=== PATIENT | male | born 1980 ===

== ENCOUNTER 2018-02-07 12:34 | Emergency (ER) | payer SELFPAY ==
[2018-02-07 13:01] VITALS: BP 146/70; PULSE 63; RESP 18; TEMP 98.3; O2SAT 100
[2018-02-07 16:10] LABS: BILIRUBIN, URINE NEG (NEG); BLOOD, URINE NEG (NEG); GLUCOSE,URINE NEG (NEG); KETONE, URINE NEG (NEG); MUCUS URINE FEW /lpf (OCC); NITRITE,URINE NEG (NEG); URINE COLOR YELLOW (YELLW/STRAW); URINE LEUKOCYTE ESTERASE NEG (NEG)
[2018-02-07] MEDS ORDERED: DEXAMETHASONE SOD PHOS 4 MG/ML VIAL IM ONE (18:00)
[2018-02-07] MEDS ORDERED: CLINDAMYCIN PHOS 600 MG/4 ML VIAL IM ONE (18:00)
[2018-02-07] MEDS ORDERED: BACT800T5 PO (18:16)
[2018-02-07] MEDS ORDERED: CLIN150C14 PO (18:16)
--- NOTE | 2018-02-07 18:17 | PD ---
HPI Chief Complaint: Skin Problem Time Seen by Provider: 17:45 Travel History International Travel<30 days: No Contact w/Intl Traveler<30days: No Traveled to known affect area: No History of Present Illness HPI 37-year-old male complains of pain and swelling of the scrotum. Patient states that he shaved his groin about a month ago. Patient states that he started having itching rash of the groin area intermittent since then. Patient states that itching is worse for the past week. Patient has been using over-the- counter cream for that with some relief. Patient states that he sprayed some type of insect spray to the scrotum last night. Patient states that he has increasing pain and swelling of the scrotum since then. Patient states the pain is burning pain localized to scrotum area. Patient denies any pain radiation. Patient denies any fever chills. Patient denies any dysuria or frequency. Patient denies any trouble urinating. On a scale of 1-10 the pain is an 8. PFSH Social History Alcohol Use: Yes Tobacco Use: No Substance Use: No Allergies-Medications (Allergen,Severity, Reaction): Coded Allergies: No Known Allergies (Unverified , 08/06/16) Reported Meds & Prescriptions Reported Meds & Active Scripts Active Bactrim DS (Sulfamethoxazole-Trimethoprim) 800-160 Mg Tab 1 Tab PO BID Clindamycin (Clindamycin HCl) 150 Mg Cap 300 Mg PO QID Review of Systems General / Constitutional: No: Fever Eyes: No: Visual changes HENT: No: Headaches Cardiovascular: No: Chest Pain or Discomfort Respiratory: No: Shortness of Breath Gastrointestinal: No: Abdominal Pain Genitourinary: No: Dysuria Musculoskeletal: No: Pain Skin: No Rash Neurologic: No: Weakness Psychiatric: No: Depression Endocrine: No: Polydipsia Hematologic/Lymphatic: No: Easy Bruising Physical Exam Narrative GENERAL: Well-nourished, well-developed patient. SKIN: Focused skin assessment warm/dry. HEAD: Normocephalic. EYES: No scleral icterus. No injection or drainage. NECK: Supple, trachea midline. No JVD or lymphadenopathy. CARDIOVASCULAR: Regular rate and rhythm without murmurs, gallops, or rubs. RESPIRATORY: Breath sounds equal bilaterally. No accessory muscle use. GASTROINTESTINAL: Abdomen soft, non-tender, nondistended. MUSCULOSKELETAL: No cyanosis, or edema. BACK: Nontender without obvious deformity. No CVA tenderness. exam: Patient has tenderness swelling edema of scrotum. No induration noted. No penile discharge noted. Data Data Last Documented VS Vital Signs Date Time Temp Pulse Resp B/P (MAP) Pulse Ox O2 Delivery O2 Flow Rate FiO2 02/07/18 13:01 98.3 63 18 146/70 (95) 100 Orders Orders Ua Includes Microscopic (02/07/18 13:03) Gc And Chlamydia Pcr (02/07/18 13:03) Dexamethasone Inj (Decadron Inj) (02/07/18 18:00) Clindamycin Inj (Cleocin Inj) (02/07/18 18:00) Labs Laboratory Tests Test 02/07/18 15:30 Urine Color YELLOW Urine Turbidity CLEAR Urine pH 6.0 Urine Specific [place] 1.027 Urine Protein NEG mg/dL Urine Glucose (UA) NEG mg/dL Urine Ketones NEG mg/dL Urine Occult Blood NEG Urine Nitrite NEG Urine Bilirubin NEG Urine Urobilinogen LESS THAN 2.0 MG/DL Urine Leukocyte Esterase NEG Urine Mucus FEW /lpf Microscopic Urinalysis Comment CULT NOT INDICATED MDM Medical Decision Making Medical Screen Exam Complete: Yes Emergency Medical Condition: Yes Differential Diagnosis Differential diagnosis including cellulitis, abscess, Cathy's gangrene. Narrative Course 37-year-old male with increasing pain swelling scrotum. Patient states that he has itching rash to the groin and over the past month. Patient states that he sprayed scrotum with some insect spray yesterday. Decadron 8 mg IM. Clindamycin 600 mg IM. Diagnosis Primary Impression: Cellulitis, scrotum Patient Instructions: General Instructions Additional Instructions: Take medications as directed. Benadryl for itching. Follow-up with personal physician. Return if persistent problem or worse or not improvement within 2 days. Med/Other Pt SpecificInfo: Prescription(s) given Scripts Prednisone (Prednisone) 20 Mg Tab 20 MG PO BID, #6 TAB 0 Refills Prov: Kian Vela MD 02/07/18 Sulfamethoxazole-Trimethoprim (Bactrim DS) 800-160 Mg Tab 1 TAB PO BID for Infection, #20 TAB 0 Refills Prov: Kina Vela MD 02/07/18 Clindamycin (Clindamycin) 150 Mg Cap 300 MG PO QID for Infection, #80 CAP 0 Refills Prov: Kian Vela MD 02/07/18 Disposition: 01 DISCHARGE HOME Condition: Stable Kian Vela MD Feb 07, 2018 18:17
[2018-02-07] MEDS ORDERED: PRED20 PO (18:21)
[2018-02-07 18:40] VITALS: BP 130/77; TEMP 97.8
== END 2018-02-07 18:40 | disposition home or self-care (01) ==
LOC: NETRI 12:34 → NEPD 18:40
DX: N49.2 Inflammatory disorders of scrotum (principal)
CPT/HCPCS: 81001; 87491; 87591; 96372; 99283; J1100

== ENCOUNTER 2018-02-14 09:25 | Emergency (ER) | payer SELFPAY ==
[~2018-02-14 09:25] MED LIST: BACT800T5 PO; CLIN150C14 PO; PRED20 PO
[2018-02-14 09:33] VITALS: BP 112/68; PULSE 61; RESP 16; TEMP 98.6; O2SAT 99
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
[2018-02-14] MEDS ORDERED: HYDR-3516 PO (11:10)
[2018-02-14] MEDS ORDERED: ACETAMINOPHEN/HYDROcodone 325 MG/5 MG TAB PO ONE (11:15)
== END 2018-02-14 12:03 | disposition home or self-care (01) ==
LOC: NEPK 09:25
DX: S52.134A Nondisplaced fracture of neck of right radius, initial encounter for closed fracture (principal); Y04.0XXA Assault by unarmed brawl or fight, initial encounter
CPT/HCPCS: 29105; 73070

== ENCOUNTER 2018-03-15 12:26 | Emergency (ER) | payer SELFPAY ==
[~2018-03-15 12:26] MED LIST changes: +HYDR-3516 PO; -PRED20 PO
[2018-03-15 12:52] VITALS: BP 104/79; PULSE 55; RESP 20; TEMP 98.3; O2SAT 99
[2018-03-15] MEDS ORDERED: IBUPROFEN 800 MG TAB PO ONE (14:30)
--- NOTE | 2018-03-15 14:40 | PD ---
HPI Chief Complaint: Injury Time Seen by Provider: 14:09 Travel History International Travel<30 days: No Contact w/Intl Traveler<30days: No Traveled to known affect area: No History of Present Illness HPI 37-year-old male presents to the emergency department with complaint of fracturing his right elbow and right wrist 3 weeks ago and is here to have it resplinted and to get a note for when he can go back to work. He removed the arm splint today on his own. He has not followed up outpatient. Is concerned because he has continued decreased range of motion of his wrist and wrist pain. He is also continuing to have right elbow pain. Reports full range of motion of his elbow but is worse with complete extension of his arm. Denies paresthesias, loss of sensation. Reports decreased strength in the arm. Says he can barely even fern picker his coffee cup. He has not been taking any medications or tried any treatments to alleviate his symptoms. He was given hydrocodone and never even filled the prescription. He says he does not like to take narcotics. He rates pain 10/10. Worse with movement. Better at rest. Denies significant past medical history. No known allergies. No primary care provider. Has no other medical complaints. No other modifying factors or associated signs and symptoms. PFSH Past Medical History Diminished Hearing: No Social History Alcohol Use: Yes Tobacco Use: No Substance Use: No Allergies-Medications (Allergen,Severity, Reaction): Coded Allergies: No Known Allergies (Unverified Adverse Reaction, Unknown, 03/15/18) Reported Meds & Prescriptions Reported Meds & Active Scripts Active Ibuprofen 800 Mg Tab 800 Mg PO Q6HR PRN Review of Systems Except as stated in HPI: all other systems reviewed are Neg Physical Exam Narrative GENERAL: Well-nourished, well-developed black male patient, in no acute distress SKIN: Warm and dry. HEAD: Atraumatic. Normocephalic. EYES: Pupils equal and round. No scleral icterus. No injection or drainage. ENT: Mucosa pink and moist. Airway patent. NECK: Trachea midline. CARDIOVASCULAR: Regular rate. RESPIRATORY: No accessory muscle use. GASTROINTESTINAL: Flat. MUSCULOSKELETAL: Right wrist with tenderness on palpation; no erythema ; no edema; decreased range of motion; obvious deformity. Right elbow with full flexion and extension; with minimal tenderness on palpation; without erythema, edema, ecchymosis. Right upper extremity with decreased manager cargo strength when compared to the left. Right upper extremity is supple and non-tense with 2+ radial pulse and sensory intact. No obvious deformities. No clubbing. No cyanosis. NEUROLOGICAL: Awake and alert. Oriented 3. No obvious cranial nerve deficits. Motor grossly within normal limits. Normal speech. PSYCHIATRIC: Appropriate mood and affect; insight and judgment normal. Data Data Last Documented VS Vital Signs Date Time Temp Pulse Resp B/P (MAP) Pulse Ox O2 Delivery O2 Flow Rate FiO2 03/15/18 12:52 98.3 55 20 104/79 (87) 99 Orders Orders Wrist, Complete ([id number]) (03/15/18 14:29) Ibuprofen (Motrin) (03/15/18 14:30) Ed Discharge Order (03/15/18 15:17) MDM Medical Decision Making Medical Screen Exam Complete: Yes Emergency Medical Condition: Yes Medical Record Reviewed: Yes Differential Diagnosis Fracture, sprain, pain Narrative Course 37-year-old male that was seen here on February 14 and diagnosed with a nondisplaced fracture through the neck of the proximal radius of the right elbow presents for reevaluation, re-splinting, and a work release note. He removed the splint today. He states he was also told that he fractured the right wrist. I reviewed his medical record from February 14 and the wrist was not x-rayed. He says his wrist is painful and he has decreased range of motion and he mentioned at that visit. His discharge instructions had mentioned to remove his splint after 3 days and to perform full range of motion and he thought that he was only supposed to remove the arm sling that he was provided for support. He has not followed up outpatient. He does have full range of motion at the right elbow. I will x-ray the wrist to rule out injury. Right wrist x-ray and ibuprofen ordered. 1518: Right wrist x-ray with no acute findings. Instructed patient to perform active range of motion exercises to the right arm and wrist to increase range of motion. Instructed patient to follow-up with orthopedics. Ibuprofen prescribed for home. Instructed patient to follow up with primary care provider. Patient verbalizes understanding and agreement with treatment plan. Patient is medically cleared and stable for discharge. Discussed reasons to return to the emergency department. Patient agrees with treatment plan. The patients vital signs are stable and the patient is stable for outpatient follow- up and treatment. Patient discharged home, stable and in no acute distress. Diagnosis Primary Impression: Right wrist pain Additional Impression: Elbow fracture, right Qualified Codes: S42.401D - Unspecified fracture of lower end of right humerus , subsequent encounter for fracture with routine healing Referrals: [facility] Orthopaedic Surgeon Primary Care Physician Patient Instructions: Elbow Fracture (ED), General Instructions, Wrist Sprain ( ED) Additional Instructions: Tylenol or ibuprofen as directed and as needed to reduce pain Perform active range of motion activities to the right arm and wrist to increase range of motion Follow-up with primary care provider Follow-up with orthopedics Return to the emergency department immediately with worsening symptoms Med/Other Pt SpecificInfo: Prescription(s) given Scripts Ibuprofen (Ibuprofen) 800 Mg Tab 800 MG PO Q6HR Y for PAIN, #30 TAB 0 Refills Prov: Hallie Patrick 03/15/18 Disposition: 01 DISCHARGE HOME Condition: Stable Hallie Patrick Mar 15, 2018 14:40
--- NOTE | 2018-03-15 15:13 | RADRPT ---
EXAM DATE/TIME: 03/15/2018 15:08 [facility] COMPARISON: No previous studies available for comparison. INDICATIONS : Right wrist pain for 3 weeks. Patient fell 3 weeks ago. MEDICAL HISTORY : None. SURGICAL HISTORY : None. ENCOUNTER: Initial ACUITY: 3 weeks PAIN SCORE: 10/10 LOCATION: Right wrist. FINDINGS: Three view examination of the right wrist demonstrates no soft tissue swelling, dislocation, or fract ure. The carpal bones are in normal alignment. The joint spaces are maintained. Bony mineralizatio n is normal. CONCLUSION: Unremarkable examination of the right wrist. Alphonso Evans MD on March 15, 2018 at 15:10 Board Certified Radiologist. This report was verified electronically.
[2018-03-15] MEDS ORDERED: IBUP1TAB7 PO (15:17)
== END 2018-03-15 15:26 | disposition home or self-care (01) ==
LOC: NEPK 12:26
DX: M25.531 Pain in right wrist (principal)
CPT/HCPCS: 73110; 99283